=== PATIENT | female | born 1990 | race African-American/Black ===

== ENCOUNTER 2018-07-06 11:33 | Inpatient (IN) ==
[2018-07-06] MEDS ORDERED: methylPREDNISolone SOD SUC 125 MG/2 ML VIAL IV STA (12:14)
[2018-07-06 13:06] LABS: Basophils % 0.9 % (0.0-0.8); Eosinophils # 0.1 10*3/uL (0.0-0.87); Eosinophils % 2.9 % (0.00-10.9); Hematocrit 40.2 VOL% (35.7-47.0); Hemoglobin 13.4 GM/DL (12.0-16.0); Immature Granulocytes % 0.3 %; Immature Granulocytes Absolute 0.01 #; Lymphocytes # 1.3 10*3/uL (1.4-4.0); Lymphocytes % 37.8 % (21.3-54.2); Mean Corpuscular HGB Conc 33.3 GM/DL (32-36); Mean Corpuscular Hemoglobin 32 PG (27-34); Mean Corpuscular Volume 96.4 FL (87-102); Mean Platelet Volume 10.4 FL (9.6-12.0); Monocytes # 0.2 10*3/uL (0.11-0.8); Monocytes % 6.6 % (1.7-12.7); Neutrophils # 1.8 10*3/uL (1.4-7.4); Neutrophils % 51.5 % (38.7-73.9); Platelet Count 272 T/CUMM (130-400); Red Blood Count 4.17 MC/CUMM (3.8-5.5); Red Cell Distribution Width 12.3 % (9.3-17.3); White Blood Count 3.5 T/CUMM (4-12)
[2018-07-06 13:19] LABS: Apearance,Urine CLEAR (Clear); Bilirubin,Urine Negative (Negative); Blood, Urine Negative (Negative); Glucose,Urine (UA) Negative (Negative); Ketones,Urine 5 mg/dL (Negative); Mucus,Urine Many /LPF (Occasional); Nitrite,Urine Negative (Negative); Protein,Urine 30 MG/DL; RBC,Urine 2 /HPF (0-4); Squamous Epithelial Cell,Urine Occasional /HPF (0-10); Urine Color Yellow (Yellow); Urine Specific Gravity 1.028 (1.001-1.035); WBC,Urine 3 /HPF (0-6)
[2018-07-06 13:21] LABS: Barbiturates Screen,Urine Negative (Negative); Benzodiazepines Screen,Urine Negative (Negative); Cannabinoid Screen,Urine Negative (Negative); Opiate Screen,Urine Negative (Negative); Phencyclidine Screen,Urine Negative (Negative)
[2018-07-06] MEDS ORDERED: ONDANSETRON 4 MG/2 ML VIAL IV PRN (13:31)
[2018-07-06 13:50] LABS: Alanine Aminotransferase 331 U/L (13-56); Albumin 3.4 G/DL (3.4-5.0); Alkaline Phosphatase 37 U/L (45-117); Aspartate Amino Transferase 270 U/L (0-37); Blood Urea Nitrogen 11 MG/DL (7-18); Calcium 8.6 MG/DL (8.5-10.1); Glucose 70 MG/DL (74-106); Osmolality,Calculated 277.3 MOS/KG (273-304); Potassium 3.6 MMOL/L (3.5-5.1); Sodium 141 MMOL/L (136-145); Total Protein 7.3 G/DL (6.4-8.3)
[2018-07-06 14:13] LABS: Sedimentation Rate-Westergren 35 MM/HR (0-20)
[2018-07-06] MEDS: methylPREDNISolone SOD SUC 125 MG/2 ML VIAL IV SCH (20:57)
[2018-07-07] MEDS: methylPREDNISolone SOD SUC 125 MG/2 ML VIAL IV SCH ×2 (06:53→19:20)
[2018-07-07 07:10] LABS: Basophils % 0.1 % (0.0-0.8); Hematocrit 43.3 VOL% (35.7-47.0); Hemoglobin 14.5 GM/DL (12.0-16.0); Immature Granulocytes % 0.3 %; Immature Granulocytes Absolute 0.03 #; Lymphocytes # 1.2 10*3/uL (1.4-4.0); Lymphocytes % 13.2 % (21.3-54.2); Mean Corpuscular HGB Conc 33.5 GM/DL (32-36); Mean Corpuscular Hemoglobin 32 PG (27-34); Mean Platelet Volume 10.3 FL (9.6-12.0); Monocytes # 0.1 10*3/uL (0.11-0.8); Monocytes % 1.1 % (1.7-12.7); Neutrophils # 7.9 10*3/uL (1.4-7.4); Neutrophils % 85.3 % (38.7-73.9); Platelet Count 311 T/CUMM (130-400); Red Blood Count 4.51 MC/CUMM (3.8-5.5); Red Cell Distribution Width 12.2 % (9.3-17.3); White Blood Count 9.2 T/CUMM (4-12)
[2018-07-07 07:49] LABS: Alanine Aminotransferase 340 U/L (13-56); Albumin 3.7 G/DL (3.4-5.0); Alkaline Phosphatase 40 U/L (45-117); Aspartate Amino Transferase 196 U/L (0-37); Bilirubin,Total < 0.39 MG/DL (0.2-1.0); Blood Urea Nitrogen 14 MG/DL (7-18); Cholesterol 171 MG/DL (50-200); Glucose 127 MG/DL (74-106); HDL Cholesterol 50 MG/DL (40-60); Potassium 3.9 MMOL/L (3.5-5.1); Risk Ratio 3.42; Sodium 136 MMOL/L (136-145); Total Protein 8.4 G/DL (6.4-8.3); Triglycerides 87 MG/DL (2-150); VLDL CHOLESTEROL 17.4 MG/DL
[2018-07-07] MEDS ORDERED: ALUMINUM/MAGNES/SIMETH MAX STR 30 ML UDCUP PO PRN (09:00)
[2018-07-07] MEDS ORDERED: MAGNESIUM HYDROXIDE SUSP 30 ML UDCUP PO PRN (09:00)
[2018-07-07] MEDS ORDERED: ACETAMINOPHEN 325 MG TABLET PO PRN (09:00)
[2018-07-07] MEDS ORDERED: diphenhydrAMINE CAP 50 MG CAPSULE PO PRN (09:52)
[2018-07-07] MEDS: PANTOPRAZOLE 40 MG TABLET PO SCH (10:35)
[2018-07-08 05:02] LABS: Hematocrit 39.7 VOL% (35.7-47.0); Immature Granulocytes % 0.3 %; Immature Granulocytes Absolute 0.03 #; Lymphocytes % 10.8 % (21.3-54.2); Mean Corpuscular HGB Conc 32.7 GM/DL (32-36); Mean Corpuscular Hemoglobin 32 PG (27-34); Mean Corpuscular Volume 96.8 FL (87-102); Mean Platelet Volume 10.8 FL (9.6-12.0); Monocytes # 0.4 10*3/uL (0.11-0.8); Monocytes % 4.5 % (1.7-12.7); Neutrophils # 8.2 10*3/uL (1.4-7.4); Neutrophils % 84.4 % (38.7-73.9); Platelet Count 290 T/CUMM (130-400); Red Cell Distribution Width 12.4 % (9.3-17.3); White Blood Count 9.7 T/CUMM (4-12)
[2018-07-08 05:13] LABS: Alanine Aminotransferase 269 U/L (13-56); Albumin 3.1 G/DL (3.4-5.0); Alkaline Phosphatase 35 U/L (45-117); Aspartate Amino Transferase 101 U/L (0-37); Bilirubin,Total < 0.39 MG/DL (0.2-1.0); Blood Urea Nitrogen 15 MG/DL (7-18); Calcium 8.3 MG/DL (8.5-10.1); Glucose 127 MG/DL (74-106); Potassium 3.8 MMOL/L (3.5-5.1); Sodium 143 MMOL/L (136-145); Total Protein 7.2 G/DL (6.4-8.3)
[2018-07-08] MEDS: methylPREDNISolone SOD SUC 125 MG/2 ML VIAL IV SCH ×2 (06:02→17:03)
[2018-07-08] MEDS: PANTOPRAZOLE 40 MG TABLET PO SCH (07:30)
[2018-07-08] MEDS ORDERED: BUPIVACAINE MPF 0.25% 30 ML VIAL ONE (07:48)
[2018-07-08] MEDS ORDERED: PROPOFOL 200 MG/20 ML VIAL IV ONE (08:04)
[2018-07-08] MEDS ORDERED: fentaNYL 100 MCG/2 ML VIAL ONE (08:05)
[2018-07-08] MEDS ORDERED: MIDAZOLAM 2 MG/2 ML VIAL ONE (08:05)
[2018-07-08] MEDS ORDERED: SEVOFLURANE 1 UNIT/15 MINUTE INH ONE (08:05)
[2018-07-08] MEDS ORDERED: ONDANSETRON 4 MG/2 ML VIAL ONE (08:05)
[2018-07-09 05:54] LABS: Hematocrit 40.2 VOL% (35.7-47.0); Immature Granulocytes % 0.5 %; Immature Granulocytes Absolute 0.04 #; Lymphocytes # 1.6 10*3/uL (1.4-4.0); Lymphocytes % 19.3 % (21.3-54.2); Mean Corpuscular HGB Conc 32.3 GM/DL (32-36); Mean Corpuscular Hemoglobin 32 PG (27-34); Mean Corpuscular Volume 97.3 FL (87-102); Mean Platelet Volume 10.4 FL (9.6-12.0); Monocytes # 0.4 10*3/uL (0.11-0.8); Monocytes % 4.9 % (1.7-12.7); Neutrophils % 75.3 % (38.7-73.9); Platelet Count 273 T/CUMM (130-400); Red Blood Count 4.13 MC/CUMM (3.8-5.5); Red Cell Distribution Width 12.4 % (9.3-17.3)
[2018-07-09 06:28] LABS: Albumin 3.1 G/DL (3.4-5.0); Bilirubin,Total 0.5 MG/DL (0.2-1.0); Calcium 8.1 MG/DL (8.5-10.1); Osmolality,Calculated 284.1 MOS/KG (273-304); Potassium 3.9 MMOL/L (3.5-5.1); Total Protein 6.7 G/DL (6.4-8.3)
[2018-07-09] MEDS: methylPREDNISolone SOD SUC 125 MG/2 ML VIAL IV SCH ×2 (06:43→17:19)
[2018-07-09] MEDS: PANTOPRAZOLE 40 MG TABLET PO SCH (08:42)
[2018-07-10] MEDS: methylPREDNISolone SOD SUC 125 MG/2 ML VIAL IV SCH ×2 (05:14→17:42)
[2018-07-10] MEDS: PANTOPRAZOLE 40 MG TABLET PO SCH (08:33)
[2018-07-11 04:54] LABS: Basophils % 0.1 % (0.0-0.8); Hematocrit 46.6 VOL% (35.7-47.0); Hemoglobin 15.3 GM/DL (12.0-16.0); Immature Granulocytes % 0.7 %; Immature Granulocytes Absolute 0.07 #; Lymphocytes # 1.8 10*3/uL (1.4-4.0); Lymphocytes % 19.2 % (21.3-54.2); Mean Corpuscular HGB Conc 32.8 GM/DL (32-36); Mean Corpuscular Hemoglobin 32 PG (27-34); Mean Corpuscular Volume 96.5 FL (87-102); Mean Platelet Volume 10.9 FL (9.6-12.0); Monocytes # 0.5 10*3/uL (0.11-0.8); Monocytes % 4.8 % (1.7-12.7); Neutrophils # 7.1 10*3/uL (1.4-7.4); Neutrophils % 75.2 % (38.7-73.9); Platelet Count 300 T/CUMM (130-400); Red Blood Count 4.83 MC/CUMM (3.8-5.5); Red Cell Distribution Width 12.1 % (9.3-17.3); White Blood Count 9.4 T/CUMM (4-12)
[2018-07-11] MEDS: methylPREDNISolone SOD SUC 125 MG/2 ML VIAL IV SCH ×2 (05:28→18:46)
[2018-07-11 05:37] LABS: Alanine Aminotransferase 190 U/L (13-56); Albumin 2.8 G/DL (3.4-5.0); Alkaline Phosphatase 35 U/L (45-117); Aspartate Amino Transferase 55 U/L (0-37); Bilirubin,Total < 0.39 MG/DL (0.2-1.0); Blood Urea Nitrogen 17 MG/DL (7-18); Calcium 7.9 MG/DL (8.5-10.1); Glucose 109 MG/DL (74-106); Osmolality,Calculated 277.7 MOS/KG (273-304); Potassium 3.8 MMOL/L (3.5-5.1); Sodium 138 MMOL/L (136-145); Total Protein 6.9 G/DL (6.4-8.3); Troponin I < 0.015 NG/ML (0.00-0.045)
[2018-07-11] MEDS: PANTOPRAZOLE 40 MG TABLET PO SCH (08:27)
[2018-07-11 19:06] LABS: Hepatitis B Core IgM Quant < 0.05 Index; Hepatitis B Core IgM Result Negative (Negative); Hepatitis B Surface Ag Result Negative (Negative); Hepatitis C Virus Ab Quant 0.03 Index; Hepatitis C Virus Ab Result Negative (Negative)
[2018-07-12] MEDS: methylPREDNISolone SOD SUC 125 MG/2 ML VIAL IV SCH (06:09)
[2018-07-12] MEDS: PANTOPRAZOLE 40 MG TABLET PO SCH (09:00)
[2018-07-12] MEDS: predniSONE 50 MG TABLET PO SCH (20:24)
[2018-07-13 07:17] VITALS: BP 132/75
[2018-07-13] MEDS: predniSONE 50 MG TABLET PO SCH (08:54)
[2018-07-13] MEDS: PANTOPRAZOLE 40 MG TABLET PO SCH (08:54)
== END 2018-07-13 11:52 | disposition home or self-care (01) | DRG 346 ==
LOC: N.ED 11:33 → SUATTDRO 13:31 → N.EDINP 13:31 → N.2W 14:23 → N.5E 17:16
PROVIDERS: ADMIT Internal Medicine; ATTEND Internal Medicine

== ENCOUNTER 2019-01-17 16:44 | Inpatient (IN) ==
[2019-01-17 17:29] LABS: Apearance,Urine CLEAR (Clear); Bilirubin,Urine Negative (Negative); Blood, Urine Negative (Negative); Glucose,Urine (UA) Negative (Negative); Ketones,Urine Negative (Negative); Mucus,Urine Occasional /LPF (Occasional); Nitrite,Urine Negative (Negative); Protein,Urine Negative; RBC,Urine 4 /HPF (0-4); Squamous Epithelial Cell,Urine Occasional /HPF (0-10); Urine Color Yellow (Yellow); Urine Specific Gravity 1.027 (1.001-1.035); WBC,Urine 3 /HPF (0-6)
[2019-01-17] MEDS ORDERED: IBUPROFEN 800 MG TABLET PO PRN (21:03)
[2019-01-17] MEDS ORDERED: BISACODYL 10 MG SUPP RECTAL PRN (21:03)
[2019-01-17] MEDS ORDERED: ONDANSETRON 4 MG/2 ML VIAL IV PRN (21:03)
[2019-01-17] MEDS ORDERED: ACETAMINOPHEN 325 MG TABLET PO PRN (21:03)
[2019-01-17] MEDS ORDERED: MAGNESIUM HYDROXIDE SUSP 30 ML UDCUP PO PRN (21:03)
[2019-01-17 21:16] LABS: Basophils % 0.4 % (0.0-0.8); Eosinophils # 0.1 10*3/uL (0.0-0.87); Eosinophils % 1.2 % (0.00-10.9); Hematocrit 39.4 VOL% (35.7-47.0); Hemoglobin 12.9 GM/DL (12.0-16.0); Immature Granulocytes % 0.4 %; Immature Granulocytes Absolute 0.03 #; Lymphocytes # 2.8 10*3/uL (1.4-4.0); Lymphocytes % 37.7 % (21.3-54.2); Mean Corpuscular HGB Conc 32.7 GM/DL (32-36); Mean Corpuscular Volume 96.1 FL (87-102); Mean Platelet Volume 10.5 FL (9.6-12.0); Neutrophils % 54.3 % (38.7-73.9); Platelet Count 312 T/CUMM (130-400); Red Cell Distribution Width 12.1 % (9.3-17.3); White Blood Count 7.3 T/CUMM (4-12)
[2019-01-17] MEDS ORDERED: LACTATED RINGERS 1,000 ML IV SCH (21:30)
[2019-01-17 21:34] LABS: Albumin 3.6 G/DL (3.4-5.0); Bilirubin,Total 0.5 MG/DL (0.2-1.0); Calcium 8.6 MG/DL (8.5-10.1); Osmolality,Calculated 274.5 MOS/KG (273-304); Total Protein 6.6 G/DL (6.4-8.3)
[2019-01-18 00:59] LABS: Basophils % 0.4 % (0.0-0.8); Eosinophils # 0.1 10*3/uL (0.0-0.87); Eosinophils % 1.7 % (0.00-10.9); Hematocrit 35.3 VOL% (35.7-47.0); Immature Granulocytes % 0.4 %; Immature Granulocytes Absolute 0.03 #; Lymphocytes # 2.7 10*3/uL (1.4-4.0); Lymphocytes % 34.3 % (21.3-54.2); Mean Corpuscular Volume 94.4 FL (87-102); Mean Platelet Volume 10.1 FL (9.6-12.0); Monocytes % 5.3 % (1.7-12.7); Neutrophils % 57.9 % (38.7-73.9); Platelet Count 288 T/CUMM (130-400); Red Blood Count 3.74 MC/CUMM (3.8-5.5); Red Cell Distribution Width 12.1 % (9.3-17.3); White Blood Count 7.8 T/CUMM (4-12)
[2019-01-18] MEDS: DOCUSATE SODIUM 100 MG CAPSULE PO SCH ×2 (09:45→20:42)
[2019-01-19 07:26] VITALS: BP 119/70
[2019-01-19] MEDS: DOCUSATE SODIUM 100 MG CAPSULE PO SCH (08:40)
[2019-01-19] MEDS ORDERED: amLODIPine 5 MG TABLET PO SCH (09:00)
[2019-01-19] MEDS ORDERED: predniSONE 50 MG TABLET PO SCH (09:00)
== END 2019-01-19 13:10 | disposition home or self-care (01) | DRG 566 ==
LOC: N.ED 16:44 → N.EDINP 21:03 → N.OB 21:38
PROVIDERS: ADMIT Obstetrics & Gynecology; ATTEND Obstetrics & Gynecology

== ENCOUNTER 2019-09-06 06:51 | Inpatient (IN) ==
[2019-09-06] MEDS ORDERED: CLINDAMYCIN INJ 900 MG in PREMIX 1 EACH IV ONE (07:02)
[2019-09-06] MEDS ORDERED: FAMOTIDINE 20 MG/2 ML VIAL IV ONE (07:02)
[2019-09-06] MEDS ORDERED: CITRIC ACID/SODIUM CITRATE 30 ML UDCUP PO ONE (07:02)
[2019-09-06] MEDS ORDERED: OXYTOCIN 10 UNIT/ML VIAL IM ONE (07:05)
[2019-09-06] MEDS ORDERED: OXYTOCIN/LR 30 UNIT/1,000 ML BAG IV ONE (07:05)
[2019-09-06] MEDS ORDERED: PROMETHAZINE 25 MG/1 ML VIAL IM ONE (07:07)
[2019-09-06] MEDS ORDERED: diphenhydrAMINE 50 MG/1 ML VIAL IV PRN ×2 (07:07)
[2019-09-06] MEDS ORDERED: LACTATED RINGERS 1,000 ML IV ONE ×2 (07:07→08:35)
[2019-09-06] MEDS ORDERED: ONDANSETRON 4 MG/2 ML VIAL IV ONE (07:07)
[2019-09-06] MEDS ORDERED: hydrOXYzine HCL 25 MG/1 ML VIAL IM PRN (07:07)
[2019-09-06] MEDS ORDERED: LACTATED RINGERS 1,000 ML IV SCH ×2 (07:30→10:30)
[2019-09-06 07:32] LABS: Basophils % 0.4 % (0.0-0.8); Eosinophils # 0.1 10*3/uL (0.0-0.87); Hematocrit 35.9 VOL% (35.7-47.0); Hemoglobin 12.3 GM/DL (12.0-16.0); Immature Granulocytes % 0.4 %; Immature Granulocytes Absolute 0.02 #; Lymphocytes # 1.3 10*3/uL (1.4-4.0); Lymphocytes % 27.9 % (21.3-54.2); Mean Corpuscular HGB Conc 34.3 GM/DL (32-36); Mean Corpuscular Volume 93.5 FL (87-102); Mean Platelet Volume 9.5 FL (9.6-12.0); Monocytes % 6.5 % (1.7-12.7); Neutrophils % 62.8 % (38.7-73.9); Platelet Count 202 T/CUMM (130-400); Red Blood Count 3.84 MC/CUMM (3.8-5.5); Red Cell Distribution Width 13.2 % (9.3-17.3); White Blood Count 4.5 T/CUMM (4-12)
[2019-09-06 07:41] LABS: PT Patient Result 10.5 SECS (9.6-12.2)
[2019-09-06 07:50] LABS: Bilirubin,Direct 0.13 MG/DL (0.0-0.20); Uric Acid 4.4 MG/DL (2.6-6.0)
[2019-09-06 07:54] LABS: Albumin 2.8 G/DL (3.4-5.0); Bilirubin,Total 0.4 MG/DL (0.2-1.0); Calcium 8.3 MG/DL (8.5-10.1); Osmolality,Calculated 270.8 MOS/KG (273-304); Total Protein 6.8 G/DL (6.4-8.3)
[2019-09-06] MEDS ORDERED: ACETAMINOPHEN 1,000 MG/100 ML VIAL IV ONE (08:35)
[2019-09-06] MEDS ORDERED: BUPIVACAINE SPINAL 0.75% 2 ML AMP SPINAL ONE (08:35)
[2019-09-06] MEDS ORDERED: MORPHINE 10 MG/10 ML VIAL ONE (08:35)
[2019-09-06] MEDS ORDERED: ONDANSETRON 4 MG/2 ML VIAL ONE (08:35)
[2019-09-06] MEDS ORDERED: KETOROLAC 30 MG/1 ML VIAL ONE (08:35)
[2019-09-06 09:55] LABS: Apearance,Urine CLEAR (Clear); Bacteria,Urine Occasional /HPF (Few); Bilirubin,Urine Negative (Negative); Blood, Urine Small mg/dL (Negative); Glucose,Urine (UA) Negative (Negative); Ketones,Urine Negative (Negative); Mucus,Urine Few /LPF (Occasional); Nitrite,Urine Negative (Negative); Protein,Urine Negative; RBC,Urine 3 /HPF (0-4); Squamous Epithelial Cell,Urine Occasional /HPF (0-10); Urine Color Yellow (Yellow); Urine Specific Gravity 1.019 (1.001-1.035); Urine Urobilinogen < 2.0 EU/DL (0.2-1.0); WBC,Urine <1 /HPF (0-6)
[2019-09-06] MEDS ORDERED: SIMETHICONE CHEW 80 MG TABLET PO PRN (10:07)
[2019-09-06] MEDS ORDERED: ACETAMINOPHEN 325 MG TABLET PO PRN (10:07)
[2019-09-06] MEDS ORDERED: MAGNESIUM HYDROXIDE SUSP 30 ML UDCUP PO PRN (10:07)
[2019-09-06] MEDS ORDERED: OXYTOCIN/LR 20 UNIT/1,000 ML BAG IV ONE (10:07)
[2019-09-06] MEDS ORDERED: RHO(D) IMMUNE GLOBULIN 300 MCG SYRINGE IM ONE (10:07)
[2019-09-06] MEDS ORDERED: ONDANSETRON 4 MG/2 ML VIAL IV PRN (10:07)
[2019-09-06] MEDS ORDERED: ceFAZolin 1,000 MG in SYRINGE 1 EACH IV SCH (10:30)
[2019-09-06] MEDS ORDERED: SUCCINYLCHOLINE 200 MG/10 ML VIAL ONE (10:32)
[2019-09-06] MEDS ORDERED: DEXAMETHASONE 4 MG/1 ML VIAL ONE (10:32)
[2019-09-06] MEDS ORDERED: LABETALOL 20 MG/4 ML SYRINGE IV ONE (10:32)
[2019-09-06] MEDS ORDERED: ROCURONIUM 100 MG/10 ML VIAL IV ONE (10:32)
[2019-09-06] MEDS ORDERED: SEVOFLURANE 1 UNIT/15 MINUTE INH ONE (10:32)
[2019-09-06] MEDS ORDERED: NEOSTIGMINE 10 MG/10 ML VIAL ONE (10:32)
[2019-09-06] MEDS ORDERED: GLYCOPYRROLATE 0.4 MG/2 ML VIAL ONE (10:32)
[2019-09-06] MEDS ORDERED: propofoL 200 MG/20 ML VIAL IV ONE (10:32)
[2019-09-06] MEDS ORDERED: miSOPROStoL 200 MCG TABLET PO ONE (11:09)
[2019-09-06] MEDS ORDERED: CARBOPROST TROMETHAMINE 250 MCG/ML AMP IM ONE (11:09)
[2019-09-06] MEDS ORDERED: SODIUM CHLORIDE 0.9% 1,000 ML IV PRN ×4 (11:18→17:55)
[2019-09-06] MEDS ORDERED: MIDAZOLAM 2 MG/2 ML VIAL ONE (11:23)
[2019-09-06] MEDS ORDERED: TRANEXAMIC ACID 1,000 MG/10 ML VIAL ONE (11:23)
[2019-09-06] MEDS ORDERED: fentaNYL 100 MCG/2 ML VIAL ONE (11:42)
[2019-09-06] MEDS ORDERED: TRANEXAMIC ACID 1,000 MG in SODIUM CHLORIDE 0.9% 100 ML IV ONE (12:00)
[2019-09-06 13:18] LABS: Hematocrit 30.3 VOL% (35.7-47.0); Hemoglobin 9.8 GM/DL (12.0-16.0)
[2019-09-06 17:28] LABS: Hematocrit 31.6 VOL% (35.7-47.0); Hemoglobin 10.8 GM/DL (12.0-16.0)
[2019-09-06] MEDS ORDERED: FUROSEMIDE 40 MG/4 ML VIAL IV ONE (17:57)
[2019-09-06] MEDS: CLINDAMYCIN INJ 900 MG in PREMIX 1 EACH IV SCH (18:30)
[2019-09-07 00:27] LABS: Basophils % 0.1 % (0.0-0.8); Hematocrit 30.8 VOL% (35.7-47.0); Hemoglobin 10.8 GM/DL (12.0-16.0); Immature Granulocytes % 0.9 %; Immature Granulocytes Absolute 0.14 #; Lymphocytes # 1.4 10*3/uL (1.4-4.0); Lymphocytes % 9.2 % (21.3-54.2); Mean Corpuscular HGB Conc 35.1 GM/DL (32-36); Mean Corpuscular Volume 88.5 FL (87-102); Mean Platelet Volume 10.1 FL (9.6-12.0); Monocytes % 4.7 % (1.7-12.7); Neutrophils % 85.1 % (38.7-73.9); Platelet Count 154 T/CUMM (130-400); Red Blood Count 3.48 MC/CUMM (3.8-5.5); Red Cell Distribution Width 14.6 % (9.3-17.3); White Blood Count 15.2 T/CUMM (4-12)
[2019-09-07] MEDS: CLINDAMYCIN INJ 900 MG in PREMIX 1 EACH IV SCH (03:24)
[2019-09-07] MEDS: IBUPROFEN 800 MG TABLET PO PRN (03:29)
[2019-09-07 05:57] LABS: Basophils % 0.1 % (0.0-0.8); Hematocrit 28.1 VOL% (35.7-47.0); Hemoglobin 9.7 GM/DL (12.0-16.0); Immature Granulocytes % 0.7 %; Lymphocytes # 1.6 10*3/uL (1.4-4.0); Lymphocytes % 11.8 % (21.3-54.2); Mean Corpuscular HGB Conc 34.5 GM/DL (32-36); Mean Corpuscular Volume 87.8 FL (87-102); Mean Platelet Volume 10.2 FL (9.6-12.0); Monocytes % 6.3 % (1.7-12.7); NRBC # 0.02 10*3/uL; Neutrophils % 81.1 % (38.7-73.9); Platelet Count 163 T/CUMM (130-400); Red Cell Distribution Width 14.8 % (9.3-17.3); White Blood Count 13.5 T/CUMM (4-12)
[2019-09-07] MEDS: DOCUSATE SODIUM 100 MG CAPSULE PO SCH ×3 (06:15→21:14)
[2019-09-07] MEDS ORDERED: OXYTOCIN/LR 0 UNIT/0 ML BAG IV ONE (09:21)
[2019-09-07] MEDS ORDERED: LIDOCAINE 1% 50 ML VIAL ONE (09:32)
[2019-09-07] MEDS: MULTIVITAMIN (PRENATAL) TABLET PO SCH (11:12)
[2019-09-07 11:52] LABS: Basophils % 0.1 % (0.0-0.8); Eosinophils % 0.1 % (0.00-10.9); Hematocrit 27.7 VOL% (35.7-47.0); Hemoglobin 9.7 GM/DL (12.0-16.0); Immature Granulocytes % 0.6 %; Immature Granulocytes Absolute 0.07 #; Lymphocytes # 1.7 10*3/uL (1.4-4.0); Lymphocytes % 14.4 % (21.3-54.2); Mean Corpuscular Volume 88.5 FL (87-102); Mean Platelet Volume 9.6 FL (9.6-12.0); Monocytes % 5.8 % (1.7-12.7); Platelet Count 164 T/CUMM (130-400); Red Blood Count 3.13 MC/CUMM (3.8-5.5); White Blood Count 11.7 T/CUMM (4-12)
[2019-09-07] MEDS ORDERED: FUROSEMIDE 40 MG/4 ML VIAL IV ONE (20:55)
[2019-09-07] MEDS ORDERED: METOCLOPRAMIDE 10 MG TABLET PO PRN (21:00)
[2019-09-07] MEDS: IRON (CARBONYL) 45 MG TABLET PO SCH (21:14)
[2019-09-08 05:48] LABS: Basophils % 0.2 % (0.0-0.8); Eosinophils % 0.4 % (0.00-10.9); Hematocrit 24.8 VOL% (35.7-47.0); Hemoglobin 8.6 GM/DL (12.0-16.0); Immature Granulocytes % 0.5 %; Immature Granulocytes Absolute 0.05 #; Lymphocytes # 1.8 10*3/uL (1.4-4.0); Lymphocytes % 18.5 % (21.3-54.2); Mean Corpuscular HGB Conc 34.7 GM/DL (32-36); Mean Corpuscular Volume 89.9 FL (87-102); Monocytes % 5.6 % (1.7-12.7); Neutrophils % 74.8 % (38.7-73.9); Platelet Count 149 T/CUMM (130-400); Red Blood Count 2.76 MC/CUMM (3.8-5.5); Red Cell Distribution Width 14.8 % (9.3-17.3); White Blood Count 9.5 T/CUMM (4-12)
[2019-09-08 06:12] LABS: Alanine Aminotransferase 32 U/L (13-56); Albumin 2.3 G/DL (3.4-5.0); Alkaline Phosphatase 44 U/L (45-117); Aspartate Amino Transferase 29 U/L (0-37); Bilirubin,Total < 0.39 MG/DL (0.2-1.0); Blood Urea Nitrogen 11 MG/DL (7-18); Calcium 8.1 MG/DL (8.5-10.1); Estimated Glom Filtration Rate 181 ML/MIN; Glucose 86 MG/DL (74-106); Osmolality,Calculated 276.4 MOS/KG (273-304); Total Protein 5.6 G/DL (6.4-8.3)
[2019-09-08] MEDS ORDERED: SODIUM CHLORIDE 0.9% 1,000 ML IV PRN (07:06)
[2019-09-08] MEDS ORDERED: FUROSEMIDE 40 MG/4 ML VIAL IV ONE (08:23)
[2019-09-08] MEDS: MULTIVITAMIN (PRENATAL) TABLET PO SCH (08:38)
[2019-09-08] MEDS: IRON (CARBONYL) 45 MG TABLET PO SCH ×2 (08:38→20:49)
[2019-09-08] MEDS: POTASSIUM CHLORIDE 20 MEQ TABLET PO SCH ×2 (08:38→20:49)
[2019-09-08] MEDS: IBUPROFEN 800 MG TABLET PO PRN (09:49)
[2019-09-08] MEDS: DOCUSATE SODIUM 100 MG CAPSULE PO SCH ×2 (15:36→20:53)
[2019-09-08 18:21] LABS: Hematocrit 31.6 VOL% (35.7-47.0); Hemoglobin 10.9 GM/DL (12.0-16.0)
[2019-09-09] MEDS: MULTIVITAMIN (PRENATAL) TABLET PO SCH (10:30)
[2019-09-09] MEDS: DOCUSATE SODIUM 100 MG CAPSULE PO SCH (10:30)
[2019-09-09] MEDS: POTASSIUM CHLORIDE 20 MEQ TABLET PO SCH (10:31)
[2019-09-09] MEDS: IRON (CARBONYL) 45 MG TABLET PO SCH (10:33)
[2019-09-09 11:39] VITALS: BP 122/55
== END 2019-09-09 14:00 | disposition home or self-care (01) | DRG 540 ==
LOC: N.LD 06:51 → N.OB 09-07 13:08
PROVIDERS: ADMIT Obstetrics & Gynecology; ATTEND Obstetrics & Gynecology
PROC: LDCSECT (ICD-10-PCS; 2019-09-06 09:15)

== ENCOUNTER 2021-03-04 18:01 | Observation (INO) ==
[2021-03-04] MEDS ORDERED: ONDANSETRON 4 MG/2 ML VIAL IV STA (20:59)
[2021-03-04] MEDS ORDERED: SODIUM CHLORIDE 0.9% 1,000 ML IV STA (20:59)
[2021-03-04] MEDS ORDERED: CLINDAMYCIN INJ 600 MG/50 ML PREMIX IV STA (21:00)
[2021-03-04] MEDS ORDERED: VANCOMYCIN INJ 1,000 MG in SODIUM CHLORIDE 0.9% 250 ML IV STA (21:02)
[2021-03-04] MEDS ORDERED: ONDANSETRON 4 MG/2 ML VIAL IV PRN (21:15)
[2021-03-04] MEDS ORDERED: ACETAMINOPHEN 325 MG TABLET PO PRN (21:15)
[2021-03-04] MEDS ORDERED: HYDROmorphone 2 MG/1 ML VIAL IV PRN (21:15)
[2021-03-04 21:23] LABS: Basophils % 0.2 % (0.0-0.8); Hematocrit 39.6 VOL% (35.7-47.0); Hemoglobin 13.3 GM/DL (12.0-16.0); Immature Granulocytes % 0.4 %; Immature Granulocytes Absolute 0.02 #; Lymphocytes % 17.4 % (21.3-54.2); Mean Corpuscular HGB Conc 33.6 GM/DL (32-36); Mean Corpuscular Volume 91.9 FL (87-102); Mean Platelet Volume 10.1 FL (9.6-12.0); Platelet Count 226 T/CUMM (130-400); Red Blood Count 4.31 MC/CUMM (3.8-5.5); White Blood Count 5.7 T/CUMM (4-12)
[2021-03-04 21:41] LABS: Albumin 3.6 G/DL (3.4-5.0); Bilirubin,Total 0.5 MG/DL (0.20-1.00); Calcium 8.5 MG/DL (8.5-10.1); Potassium 3.4 MMOL/L (3.5-5.1); Total Protein 8.1 G/DL (6.4-8.2)
[2021-03-04] MEDS: LACTATED RINGERS 1,000 ML IV SCH (22:00)
[2021-03-05] MEDS ORDERED: CLINDAMYCIN INJ 600 MG/50 ML PREMIX IV SCH (05:00)
[2021-03-05] MEDS: LACTATED RINGERS 1,000 ML IV SCH (06:12)
[2021-03-05] MEDS ORDERED: PANTOPRAZOLE 40 MG TABLET PO SCH (09:00)
[2021-03-05 12:38] VITALS: BP 168/97
== END 2021-03-05 12:46 | disposition home or self-care (01) ==
LOC: N.ED 18:01 → N.EDINP 18:01
PROVIDERS: ADMIT Surgery; ATTEND Surgery

== ENCOUNTER 2022-01-08 10:08 | Inpatient (IN) ==
[2022-01-08] MEDS ORDERED: miSOPROStoL 200 MCG TABLET RECTAL PRN (10:16)
[2022-01-08] MEDS ORDERED: CITRIC ACID/SODIUM CITRATE 30 ML UDCUP PO ONE (10:16)
[2022-01-08] MEDS ORDERED: METHYLERGONOVINE 0.2 MG/1 ML AMP IM PRN (10:16)
[2022-01-08] MEDS ORDERED: FAMOTIDINE 20 MG/2 ML VIAL IV ONE (10:16)
[2022-01-08] MEDS ORDERED: OXYTOCIN/LR 20 UNIT/1,000 ML BAG IV ONE ×2 (10:16→16:27)
[2022-01-08] MEDS ORDERED: TRANEXAMIC ACID 1,000 MG in SODIUM CHLORIDE 0.9% 100 ML IV PRN (10:16)
[2022-01-08] MEDS ORDERED: CARBOPROST TROMETHAMINE 250 MCG/ML AMP IM PRN (10:16)
[2022-01-08] MEDS ORDERED: CLINDAMYCIN INJ 900 MG/50 ML PREMIX IV ONE (10:16)
[2022-01-08 10:45] LABS: Basophils % 0.2 % (0.0-0.8); Eosinophils # 0.1 10*3/uL (0.0-0.87); Eosinophils % 0.9 % (0.00-10.9); Hematocrit 36.5 VOL% (35.7-47.0); Hemoglobin 12.6 GM/DL (12.0-16.0); Immature Granulocytes % 0.6 %; Immature Granulocytes Absolute 0.04 #; Lymphocytes # 1.6 10*3/uL (1.4-4.0); Lymphocytes % 25.4 % (21.3-54.2); Mean Corpuscular HGB Conc 34.5 GM/DL (32-36); Mean Corpuscular Volume 92.6 FL (87-102); Mean Platelet Volume 9.8 FL (9.6-12.0); Monocytes # 0.3 10*3/uL (0.11-0.8); Monocytes % 5.2 % (1.7-12.7); Neutrophils % 67.7 % (38.7-73.9); Platelet Count 265 T/CUMM (130-400); Red Blood Count 3.94 MC/CUMM (3.8-5.5); Red Cell Distribution Width 13.2 % (9.3-17.3); White Blood Count 6.4 T/CUMM (4-12)
[2022-01-08] MEDS: LACTATED RINGERS 1,000 ML IV SCH ×2 (10:48→17:49)
[2022-01-08 11:00] LABS: INR 0.9; PT Patient Result 10.4 SECS (10.5-12.0); Partial Thromboplastin Time 29.5 SECS (23.8-32.1)
[2022-01-08 11:02] LABS: Albumin 2.8 G/DL (3.4-5.0); Bilirubin,Direct 0.1 MG/DL (0.0-0.20); Bilirubin,Total 0.4 MG/DL (0.20-1.00); Calcium 8.8 MG/DL (8.5-10.1); Osmolality,Calculated 271.8 MOS/KG (273-304); Potassium 3.5 MMOL/L (3.5-5.1); Total Protein 7.2 G/DL (6.4-8.2); Uric Acid 4.4 MG/DL (2.6-6.0)
[2022-01-08] MEDS ORDERED: OXYTOCIN/LR 30 UNIT/1,000 ML BAG IV ONE ×2 (12:29→17:50)
[2022-01-08] MEDS ORDERED: OXYTOCIN 10 UNIT/ML VIAL IM ONE (12:29)
[2022-01-08] MEDS ORDERED: CARBOPROST TROMETHAMINE 250 MCG/ML AMP IM ONE (14:03)
[2022-01-08] MEDS ORDERED: METHYLERGONOVINE 0.2 MG/1 ML AMP ONE (14:03)
[2022-01-08] MEDS ORDERED: miSOPROStoL 200 MCG TABLET ONE (14:03)
[2022-01-08] MEDS ORDERED: BUPIVACAINE MPF 0.5% 30 ML VIAL ONE (14:20)
[2022-01-08] MEDS ORDERED: buprenorphine HCL 0.3 MG/ML VIAL ONE (14:20)
[2022-01-08] MEDS ORDERED: PHENYLEPHRINE 1 MG/10 ML SYRINGE IV ONE (14:20)
[2022-01-08] MEDS ORDERED: KETOROLAC 30 MG/1 ML VIAL ONE (14:59)
[2022-01-08] MEDS ORDERED: DEXAMETHASONE 4 MG/1 ML VIAL ONE (14:59)
[2022-01-08] MEDS ORDERED: ACETAMINOPHEN INJ 1,000 MG/100 ML VIAL IV ONE (14:59)
[2022-01-08] MEDS ORDERED: ONDANSETRON 4 MG/2 ML VIAL ONE (14:59)
[2022-01-08 15:09] LABS: Cord Arterial Blood HCO3 23.5 MMOL/L
[2022-01-08 15:11] LABS: Cord Venous Blood HCO3 24.5 MMOL/L; Cord Venous Blood PCO2 49.1 MMHG; Cord Venous Blood PO2 35.1
[2022-01-08 15:16] LABS: Urine Appearance Clear (Clear); Urine Color Yellow (Yellow)
[2022-01-08 15:17] LABS: Bilirubin,Urine Negative (Negative); Blood, Urine Trace mg/dL (Negative); Glucose,Urine (UA) Negative (Negative); Ketones,Urine Negative (Negative); Nitrite,Urine Negative (Negative); Protein,Urine Negative (Negative); Urine Specific Gravity 1.015 (1.001-1.035); Urine Urobilinogen 0.2 eU/dL (<2.0)
[2022-01-08 15:24] LABS: Bacteria,Urine Occasional /HPF (Few); Mucus,Urine Occasional /LPF (Occasional); RBC,Urine 1 /HPF (0-4); Squamous Epithelial Cell,Urine Occasional /HPF (0-10)
[2022-01-08] MEDS ORDERED: IBUPROFEN 800 MG TABLET PO PRN (16:27)
[2022-01-08] MEDS ORDERED: SIMETHICONE CHEW 80 MG TABLET PO PRN (16:27)
[2022-01-08] MEDS ORDERED: ACETAMINOPHEN 325 MG TABLET PO PRN (16:27)
[2022-01-08] MEDS ORDERED: ONDANSETRON 4 MG/2 ML VIAL IV PRN (16:27)
[2022-01-08] MEDS ORDERED: RHO(D) IMMUNE GLOBULIN 300 MCG SYRINGE IM ONE (16:27)
[2022-01-08] MEDS ORDERED: LACTATED RINGERS 1,000 ML IV SCH (16:30)
[2022-01-08 18:16] LABS: Hematocrit 29.7 VOL% (35.7-47.0); Hemoglobin 10.2 GM/DL (12.0-16.0)
[2022-01-08] MEDS ORDERED: KETOROLAC 30 MG/1 ML VIAL IV SCH (21:00)
[2022-01-08] MEDS ORDERED: ACETAMINOPHEN 500 MG TABLET PO SCH (21:00)
[2022-01-08] MEDS: CLINDAMYCIN INJ 900 MG/50 ML PREMIX IV SCH (21:56)
[2022-01-08] MEDS: ACETAMINOPHEN 500 MG TABLET PO SCH (22:11)
[2022-01-08] MEDS: DOCUSATE SODIUM 100 MG CAPSULE PO SCH (22:11)
[2022-01-08] MEDS: KETOROLAC 30 MG/1 ML VIAL IV SCH (22:12)
[2022-01-08 23:30] LABS: Basophils % 0.1 % (0.0-0.8); Hemoglobin 9.7 GM/DL (12.0-16.0); Immature Granulocytes % 0.8 %; Immature Granulocytes Absolute 0.11 #; Mean Corpuscular HGB Conc 34.6 GM/DL (32-36); Mean Platelet Volume 9.8 FL (9.6-12.0); Monocytes # 0.3 10*3/uL (0.11-0.8); Monocytes % 2.3 % (1.7-12.7); Neutrophils % 89.8 % (38.7-73.9); Platelet Count 231 T/CUMM (130-400); Red Blood Count 3.01 MC/CUMM (3.8-5.5); Red Cell Distribution Width 13.2 % (9.3-17.3); White Blood Count 14.3 T/CUMM (4-12)
[2022-01-09] MEDS ORDERED: LACTATED RINGERS 1,000 ML IV SCH (02:00)
[2022-01-09] MEDS: CLINDAMYCIN INJ 900 MG/50 ML PREMIX IV SCH (04:00)
[2022-01-09] MEDS: KETOROLAC 30 MG/1 ML VIAL IV SCH ×2 (04:33→10:30)
[2022-01-09] MEDS: ACETAMINOPHEN 500 MG TABLET PO SCH ×2 (04:34→11:27)
[2022-01-09 06:29] LABS: Basophils % 0.2 % (0.0-0.8); Hematocrit 26.3 VOL% (35.7-47.0); Hemoglobin 8.9 GM/DL (12.0-16.0); Immature Granulocytes % 0.6 %; Immature Granulocytes Absolute 0.08 #; Lymphocytes # 1.4 10*3/uL (1.4-4.0); Lymphocytes % 11.3 % (21.3-54.2); Mean Corpuscular HGB Conc 33.8 GM/DL (32-36); Mean Corpuscular Volume 93.6 FL (87-102); Mean Platelet Volume 10.3 FL (9.6-12.0); Monocytes # 0.4 10*3/uL (0.11-0.8); Monocytes % 3.3 % (1.7-12.7); Neutrophils % 84.6 % (38.7-73.9); Platelet Count 241 T/CUMM (130-400); Red Blood Count 2.81 MC/CUMM (3.8-5.5); Red Cell Distribution Width 13.1 % (9.3-17.3); White Blood Count 12.6 T/CUMM (4-12)
[2022-01-09] MEDS: FERROUS SULFATE 325 MG TABLET PO SCH ×2 (08:13→21:39)
[2022-01-09] MEDS: MULTIVITAMIN (PRENATAL) TABLET PO SCH (08:13)
[2022-01-09] MEDS: DOCUSATE SODIUM 100 MG CAPSULE PO SCH ×2 (08:13→21:38)
[2022-01-09] MEDS: MAGNESIUM HYDROXIDE SUSP 30 ML UDCUP PO PRN ×2 (08:14→21:40)
[2022-01-09] MEDS: METOCLOPRAMIDE 10 MG TABLET PO SCH (16:41)
[2022-01-09 18:57] LABS: Hematocrit 24.7 VOL% (35.7-47.0); Hemoglobin 8.5 GM/DL (12.0-16.0)
[2022-01-10] MEDS: METOCLOPRAMIDE 10 MG TABLET PO SCH ×2 (00:23→08:40)
[2022-01-10] MEDS: FERROUS SULFATE 325 MG TABLET PO SCH (08:39)
[2022-01-10] MEDS: MULTIVITAMIN (PRENATAL) TABLET PO SCH (08:39)
[2022-01-10] MEDS: DOCUSATE SODIUM 100 MG CAPSULE PO SCH (08:39)
[2022-01-10 08:51] VITALS: BP 139/92
[2022-01-10] MEDS ORDERED: DIPH/TET/ACEL PERT BOOSTER VACCINE 0.5 ML VIAL IM ONE (10:33)
== END 2022-01-10 12:35 | disposition home or self-care (01) | DRG 540 ==
LOC: N.LD 10:08 → N.OB 20:45
PROVIDERS: ADMIT Obstetrics & Gynecology; ATTEND Obstetrics & Gynecology
PROC: LDCSECT (ICD-10-PCS; 2022-01-08 14:45)